=== PATIENT | female | born 1990 | race Two or more races ===

== ENCOUNTER 2024-11-24 23:05 | Emergency (ER) | payer MEDICAID, SELFPAY ==
[2024-11-24 23:09] VITALS: BMI 37.5
[2024-11-24 23:17] VITALS: BP 116/79; PULSE 90; RESP 20; TEMP 36.7; O2SAT 96
[2024-11-25] MEDS: DEXAMETHASONE SOD PHOS INJ 10 MG/ML VIAL PO (01:18)
[2024-11-25] MEDS: ALBUTEROL/IPRATROPIUM (Duoneb) RT SOL 3 ML NEBU INH (01:31)
[2024-11-25 01:32] VITALS: PULSE 82; RESP 20; O2SAT 99
--- NOTE | 2024-11-25 02:05 | XR_ITS ---
Examination: PA chest single view TECHNIQUE: Upright PA chest single view Date and time: November 25, 2024 0208 hours INDICATIONS: Fever coughing today. FINDINGS: Normal heart size. Lungs are clear. The osseous structures are intact. IMPRESSION: No active disease.
[2024-11-25 02:33] LABS: Collection Type, Urine Clean Catch
[2024-11-25 02:38] LABS: Bilirubin,Urine Negative (Negative); Blood,Urine 3+ (Negative); Clarity,Urine Clear (Clear/Hazy); Color,Urine Lt-Yellow (Lt Yel-Yel); Culture Indicated,Urine Not Indicated; Glucose, Urine Negative (Negative); Ketones,Urine Negative (Negative); Leukocyte Esterase,Urine Positive (Negative); Nitrite,Urine Negative (Negative); PH,Urine 6.0 (5.0-7.0); Protein,Urine Negative (Neg - Trace); RBC,Urine 54 /hpf (0-3); Specific Gravity,Urine 1.019 (1.001-1.035); Squamous Epithelial Cell,Urine 6 /hpf (0-5); Urobilinogen,Urine Negative mg/dL (0.0-1.0); WBC,Urine 3 /hpf (0-5)
[2024-11-25 02:40] LABS: HCG Qualitative,Urine Negative
--- NOTE | 2024-11-25 03:00 | EDNOTE_ITS ---
ED General RME/HPI General Chief complaint: Vaginal Bleeding Stated complaint: VAGINAL DISCHARGE/FLUID SOMTIMES BLOODY Time Seen by Provider: 11/25/24 00:12 Arrival date/time: 11/24/24 23:05 RME / HPI RME / HPI narrative: Thin white to pink vaginal discharge with no itch, but with foul odor. She is also leaking urine with coughing. She has been ill since with a dry cough and feeling feverish.. She is also complaining of bilateral lower lung pain. Related Data Previous Rx's ?Medication ?Instructions ?Recorded hydrocodone 5 mg-acetaminophen 300 1 tab PO Q4H PRN pa in #10 tabs 02/09/19 mg tablet (Vicodin) acetaminophen 500 mg capsule 1,000 mg (2 x 500 mg) PO Q6H PRN 02/16/19 fever or pain #30 caps acetaminophen 650 mg 650 mg PO Q8H PRN fever or p ain 08/22/21 tablet,extended release #30 tabs ibuprofen 600 mg tablet 600 mg PO Q8H PRN fever or p ain 08/22/21 #30 tabs dexamethasone 6 mg tablet 6 mg PO QDAY #5 tabs 2 (Decadron) cyclobenzaprine 10 mg tablet 10 mg PO HS #20 tabs 08/20 07/13 meloxicam 7.5 mg tablet 7.5 mg PO QDAY #14 tabs 08/20 07/13 albuterol sulfate 90 mcg/actuation 2 puff inhalation Q 4H PRN 11/25/24 aerosol inhaler shortness of breath or wheez ing #8.5 grams metronidazole 500 mg tablet 500 mg PO BID 7 days #14 t abs 11/25/24 nitrofurantoin 100 mg PO Q12H 5 days #10 ca ps 11/25/24 monohydrate/macrocrystals 100 mg capsule (Macrobid) oseltamivir 75 mg capsule (Tamiflu) 75 mg PO BID 5 day s #10 caps 11/25/24 Allergies Allergy/AdvReac Type Severity Reaction Status Date / Time amoxicillin Allergy Severe RASH Verified 02/26/24 18:25 Review of Systems Review of Systems Systems Reviewed: All systems reviewed, normal except as documented Past Medical History Past Medical History NEUROLOGIC: Negative Neurological Disorders CARDIAC: Negative Cardiac Disorders or Congestive Heart Failure RESPIRATORY: Negative Chronic Obstructive Pulmonary Disease (COPD) or Asthma GASTROINTESTINAL: Negative Gastrointestinal Disorders GENITOURINARY: Positive Genitourinary Disorders; Negative Renal Disease REPRODUCTIVE: Positive Pelvic Inflammatory Disease and Previous Pregnancies MUSCULOSKELETAL: Negative Musculoskeletal Disorders ENDOCRINE: Positive Endocrine Disorders and Pituitary Disease; Negative Diabetes Mellitus Type 1 or Diabetes Mellitus Type 2 HEMATOLOGIC: Negative Blood Disorders or Sickle Cell Disease PSYCHO/SOCIAL: Positive Depression and Anxiety OTHER HISTORY: Positive Hospitalization; Negative Autoimmune Disease, Down Syndrome, Developmental Delay, Shingles, Falls, Blood Transfusions, Anesthesia Reactions, Organ Transplant, Chemotherapy, Radiation Therapy, Hyperbaric Therapy, MRSA, VRSA, Clostridium Difficile or Cancer Family History FAMILY HISTORY: Positive Family Cardiac Disorders; Negative Family Psychiatric Problems, Family Respiratory Disorders, Family Gastrointestinal Problems, Family Cancer, Family Surgery or Family Anesthesia Reaction Surgical History SURGICAL: Positive Abdominal Surgery; Negative Cardiac Surgery, Endocrine Surgery, Ear Surgery, Nephrectomy, Joint Replacement, Neurologic Surgery, Mastectomy, Section or Organ Transplant Social History SMOKING STATUS: Never smoker SUBSTANCE USE: does not use ED Exam Narrative Physical exam: A&O, afebrile and non-toxic appearing 34-year-old female, no acute distress. Lungs are clear, active spasmodic dry coughing noted. TMs and oropharynx are without erythema. No sinus tenderness. Abdomen is soft and nontender. RRR. Moves all extremities well. Course Course Course Narrative: Initial vital signs blood pressure 116/79, pulse 90, respirations 20 and nonlabored, temperature 98.1, and O2 sat 96% on room air. COVID swab is negative, influenza A and B are both positive. Urinalysis reveals clear light yellow urine with a specific gravity of 1.19 with 3+ blood, negative nitrites, positive leukocyte esterase, 54 RBCs, 3 WBCs, 6 epithelial cells, and no bacteria. Urine hCG is negative. Patient was given dexamethasone 10 mg p.o. and a DuoNeb treatment. XR chest 2 view reveals no obvious pneumonia per preliminary read. Quality Measures none Orders Category Date Time Status Bedside COVID-19 Antigen Test NOW Care 11/25/24 01:01 Active Bedside Influenza A&B Antigen Test NOW Care 11/25/24 01:01 Completed XR chest 2V Stat Exams 11/25/24 02:05 Taken Bacterial Vaginal Panel Stat Lab 11/25/24 Ordered Chlamydia/GC/TV - PCR Stat Lab 11/25/24 Ordered HCG Qualitative,Urine Stat Lab 11/25/24 02:21 Completed Urinalysis, C/S if Indicated Stat Lab 11/25/24 02:21 Completed Albuterol/Ipratr Rt Juany [Duoneb Rt Juany] Med 11/25/24 01:01 Discontinued 3 ml INH X1 ONE Dexamethasone Inj [Decadron Inj] Med 11/25/24 01:01 Discontinued 10 mg PO X1 ONE Vital Signs Vital signs: Vital Signs Temperature 98.1 F 11/24/24 23:17 Pulse Rate 90 11/24/24 23:17 Respiratory Rate 20 11/24/24 23:17 Blood Pressure 116/79 11/24/24 23:17 Pulse Oximetry (%) 96 11/24/24 23:17 Oxygen Delivery Method Room Air 11/24/24 23:17 Discharge Plan Plan Patient Disposition: HOME (Self Care) Discharge Disposition comment: Stable and improved Prescriptions/Referrals Prescriptions/Med Rec: New oseltamivir [Tamiflu] 75 mg capsule 75 mg PO BID 5 Days Qty: 10 0RF albuterol sulfate 90 mcg/actuation HFA aerosol inhaler 2 puff inhalation Q4H PRN (Reason: shortness of breath or wheezing) Qty: 8.5 0RF metronidazole 500 mg tablet 500 mg PO BID 7 Days Qty: 14 0RF nitrofurantoin monohyd/m-cryst [Macrobid] 100 mg capsule 100 mg PO Q12H 5 Days Qty: 10 0RF Rx Instructions: must administer with a meal/food No Action hydrocodone-acetaminophen [Vicodin] 5-300 mg tablet 1 tab PO Q4H MDD 4 PRN (Reason: pain) Qty: 10 0RF acetaminophen 500 mg capsule 1,000 mg PO Q6H PRN (Reason: fever or pain) Qty: 30 0RF acetaminophen 650 mg tablet extended release 650 mg PO Q8H PRN (Reason: fever or pain) Qty: 30 0RF Rx Instructions: swallow whole; do not chew/break/dissolve/open ibuprofen 600 mg tablet 600 mg PO Q8H PRN (Reason: fever or pain) Qty: 30 0RF dexamethasone [Decadron] 6 mg tablet 6 mg PO QDAY Qty: 5 0RF meloxicam 7.5 mg tablet 7.5 mg PO QDAY Qty: 14 0RF cyclobenzaprine 10 mg tablet 10 mg PO HS Qty: 20 0RF Referrals: Anoop Machado MD [Primary Care Provider] - In 1 week Problem List Clinical Impression: Influenza, UTI (urinary tract infection), Bacterial vaginosis Patient/Caregiver Discharge Instructions Education Materials: Bacterial Vaginosis, ED Influenza (Adult), ED CYSTITIS Female Adult Additional Instructions: Take the antiviral, antibiotic, and antifungal medications as prescribed and complete the course even though you may be feeling better. Use the albuterol inhaler as needed for spasmodic coughing or shortness of breath. Follow-up with your primary care physician in 24 to 48 hours. Return to the ED for any new or worsening symptoms. Print Language: Honduran Stand Alone Forms: [employer] Award Info., Patient Portal Info Letter PA/LAUREN Supervising Physician PA/ACTING SECTION CHIEF Supervising Physician: Dr Jennifer MANZANO Narrative [facility] hospital course: Symptoms, exam and diagnostic studies are consistent with: #1 Influenza A/B, #2 vaginal discharge (likely bacterial vaginosis), #3 UTI with hematuria Patient was discharged home in stable condition. Patient/family advised to follow-up with their PCP in 24-48 hours. Encouraged to return to the ED for any new or worsening symptoms. Clinical Information Provided by patient Medical Records Reviewed None Meds/Rx Considered, not Ordered None Describe details: N/A Labs/Rad/Tests considered, not Ordered None Describe details: N/A Chronic Illness/Social Conditions which may negatively complicate care or outcome(s)-explain: None or not applicable EKG EKG not done Lab Interpretation Labs: interpreted by me Lab(s) interpretation(s): As noted above Imaging Imaging interpretation: see narrative above Provider imaging interpretation(s): No obvious lobar pneumonia Radiology reports / interpretation(s): Not available Medication Administration(s) Medication Administration History Discontinued Medications Albuterol/Ipratropium (Albuterol/Ipratropium (Duoneb) Rt Juany 3 Ml Nebu) 3 ml INH X1 ONE Stop: 11/25/24 01:02 Last Admin: 11/25/24 01:31 Dose: 3 ml Documented By: GB Dexamethasone Sodium Phosphate (Dexamethasone Sod Phos Inj 10 Mg/Ml Vial) 10 mg PO X1 ONE Stop: 11/25/24 01:02 Last Admin: 11/25/24 01:18 Dose: 10 mg Documented By: CB As noted above Diagnosis Differential diagnosis: UTI, candidiasis, bacterial vaginosis, pneumonia, COVID, influenza A/B Differential dx and/or dx ruled out: Pneumonia, COVID Most likely dx, and/or detailed dx discussion: UTI, bacterial vaginosis, influenza A and B+ Dispositon Disposition: Discharge Home Disposition comments: Patient is stable for discharge
== END 2024-11-25 03:38 | disposition home or self-care (01) ==
PROVIDERS: Physician Assistant; Emergency Provider Emergency Medicine; PCP Student in an Organized Health Care Education/Training Program
DX: N39.0 Urinary tract infection, site not specified (principal); N76.0 Acute vaginitis; J10.1 Influenza due to other identified influenza virus with other respiratory manifestations; B96.89 Other specified bacterial agents as the cause of diseases classified elsewhere
CPT/HCPCS: 71046; 81001; 81025; 81514; 87400; 87491; 87591; 87661; 87811; 94640; 99283; A9270; J1100

== ENCOUNTER 2025-04-09 18:20 | Emergency (ER) | payer MEDICAID, SELFPAY ==
[2025-04-09 19:35] VITALS: BP 122/81; PULSE 70; RESP 18; TEMP 36.8; O2SAT 98; BMI 37.0
--- NOTE | 2025-04-09 19:57 | XR_ITS ---
Examination: CT brain head without contrast. 2-D sagittal coronal reconstructions Date and time of exam: April 09, 2025, 2103 hours INDICATION: Headaches blurred vision beginning 2 days ago CTDI: vol (mGy): 49.8 DLP: (mGycm): 914 Technique: Multiple CT axial sections of the brain have been obtained, 5 mm slice thickness. Contrast has not been administered. 2-D sagittal, coronal reconstructions have been obtained Low dose protocols were performed. One or more of the following dose reduction techniques were used; automated exposure control, adjustment of the mA and/or KV according to patient size, use of iterative reconstruction technique. Findings: No significant ventricular enlargement. Intra-axial or extra-axial hemorrhage density is not seen. No mass effect or midline shift Basal cisterns are not remarkable. Fourth ventricle is midline. Cranial vault intact. Impression: Negative for acute hemorrhage, mass effect or midline shift As clinically warranted, consider brain MRI follow-up
--- NOTE | 2025-04-09 19:58 | EDRME_ITS ---
Rapid Medical Screening Exam [facility] Arrival date/time: 04/09/25 18:20 35F with history of migraines presents to ED with 2 days of DIAZ, R eye pain/blurry vision, and difficulty focusing. Chief Complaint: Eye Problems Vital signs: Vital Signs Temperature 98.2 F 04/09/25 19:35 Pulse Rate 70 04/09/25 19:35 Respiratory Rate 18 04/09/25 19:35 Blood Pressure 122/81 04/09/25 19:35 Pulse Oximetry (%) 98 04/09/25 19:35 Oxygen Delivery Method Room Air 04/09/25 19:35 Exam: Normal pupil response and EOM. No redness. CN II-XII grossly intact. Neg pronator drift test. Speech normal. Clinical Impression: Migraine vs sinusitis vs CVA/TIA vs brain bleed vs retinal detachment vs glaucoma
[2025-04-09] MEDS: METOCLOPRAMIDE 5 MG TABLET 10 MG PO (20:37)
[2025-04-09] MEDS: SUMAtriptan INJ 6 MG/0.5 ML VIAL SC (20:38)
[2025-04-09 21:31] LABS: Basophils # (Auto) 0.0 Thou/mm3 (0.0-0.2); Basophils % (Auto) 0 % (0-2.5); Eosinophils # (Auto) 0.2 Thou/mm3 (0.0-0.5); Eosinophils % (Auto) 2 % (0-10); Hematocrit 37.6 % (36.0-46.0); Hemoglobin 13.3 g/dL (12.0-16.0); Immature Granulocytes Auto 0.02 Thou/mm3 (0.00-0.00); Lymphocytes # (Auto) 3.1 Thou/mm3 (1.0-4.8); Lymphocytes % (Auto) 37 % (10-50); Mean Corpuscular HGB Conc 35.4 g/dl (31.0-37.0); Mean Corpuscular Hemoglobin 29.4 pg (25.0-35.0); Mean Corpuscular Volume 83 fL (80-100); Monocytes # (Auto) 0.7 Thou/mm3 (0.0-0.8); Monocytes % (Auto) 8 % (0-12); Neutrophils # (Auto) 4.4 Thou/mm3 (1.8-7.7); Neutrophils % (Auto) 53 % (37-80); Nucleated Red Blood Cell # 0.00 Thou/mm3 (0.00-0.00); Nucleated Red Blood Cell % 0 /100 WBC (0); Platelet Count 233 Thou/mm3 (140-440); RDW Standard Deviation 38.4 fL (36.4-46.3); Red Blood Count 4.53 Miln/mm3 (4.00-5.20); White Blood Count 8.3 Thou/mm3 (3.6-11.0)
[2025-04-09 21:46] LABS: Alanine Aminotransferase 19 U/L (10-49); Albumin, Serum 4.2 gm/dL (3.5-5.0); Albumin/Globulin Ratio 1.2 (1.2-2.2); Alkaline Phosphatase 134 U/L (46-116); Anion Gap 8 (7-16); Aspartate Amino Transferase 23 U/L (0-34); BUN/Creatinine Ratio 11 Ratio (12-20); Bilirubin,Total 0.4 mg/dL (0.3-1.2); Blood Urea Nitrogen 9 mg/dL (9-23); Calcium 9.4 mg/dL (8.3-10.6); Calcium (Corrected) 9.4 mg/dL (8.5-10.1); Carbon Dioxide 26.4 mMol/L (20.0-31.0); Chloride 106 mMol/L (98-107); Creatinine (Component) 0.8 mg/dL (0.6-1.3); Estimated Creatinine Clearance 96.6 mL/min (>60); Globulin 3.4 gm/dL (2.3-3.5); Glucose 98 mg/dL (74-106); Osmolality,Calculated 278 (275-295); Potassium 4.5 mMol/L (3.4-5.1); Sodium 140 mMol/L (136-145); Total Protein 7.6 gm/dL (5.7-8.2); eGFR > 60 See Note
--- NOTE | 2025-04-09 22:04 | EDNOTE_ITS ---
ED Eye Problem RME/HPI General Chief complaint: Eye Problems Stated complaint: R EYE PAIN FEELS LIKE A CURTAIN IN VISION X 2 DAYS Time Seen by Provider: 04/09/25 20:00 Arrival date/time: 04/09/25 18:20 RME / HPI RME / HPI Narrative: 04/09/25 18:20 35F with history of migraines presents to ED with 2 days of DIAZ, R eye pain/blurry vision, and difficulty focusing. DR. HERNÁNDEZ MAIN ED EVALUATION: 35 y/o female with Hx of Anxiety, Depression, and Pituitary Disease presents to ED c/o visual disturbance and pressure to the right eye x 3 days and headache x 1 day. Patient experienced similar symptoms 5 years ago when having a headache, but visual disturbance occurred to both eyes. Denies any recent head strike. No other complaints. Exam: Normal pupil response and EOM. No redness. CN II-XII grossly intact. Neg pronator drift test. Speech normal. Impression: Migraine vs sinusitis vs CVA/TIA vs brain bleed vs retinal detachment vs glaucoma Related Data Previous Rx's ?Medication ?Instructions ?Recorded hydrocodone 5 mg-acetaminophen 300 1 tab PO Q4H PRN pa in #10 tabs 02/09/19 mg tablet (Vicodin) acetaminophen 500 mg capsule 1,000 mg (2 x 500 mg) PO Q6H PRN 02/16/19 fever or pain #30 caps acetaminophen 650 mg 650 mg PO Q8H PRN fever or p ain 08/22/21 tablet,extended release #30 tabs ibuprofen 600 mg tablet 600 mg PO Q8H PRN fever or p ain 08/22/21 #30 tabs dexamethasone 6 mg tablet 6 mg PO QDAY #5 tabs 2 (Decadron) cyclobenzaprine 10 mg tablet 10 mg PO HS #20 tabs 08/20 07/13 meloxicam 7.5 mg tablet 7.5 mg PO QDAY #14 tabs 08/20 07/13 albuterol sulfate 90 mcg/actuation 2 puff inhalation Q 4H PRN 11/25/24 aerosol inhaler shortness of breath or wheez ing #8.5 grams Allergies Allergy/AdvReac Type Severity Reaction Status Date / Time No Known Allergies Allergy Verified 04/09/25 18:24 Review of Systems Review of Systems Systems Reviewed: All systems reviewed, normal except as documented Past Medical History Past Medical History GENITOURINARY: Positive Genitourinary Disorders REPRODUCTIVE: Positive Pelvic Inflammatory Disease and Previous Pregnancies ENDOCRINE: Positive Endocrine Disorders and Pituitary Disease PSYCHO/SOCIAL: Positive Depression and Anxiety OTHER HISTORY: Positive Hospitalization Family History FAMILY HISTORY: Positive Family Cardiac Disorders Surgical History SURGICAL: Positive Abdominal Surgery ED Exam Narrative Physical exam: Generally patient is alert and in no obvious distress, eyes show pupils equal round reactive to light with extraocular movements intact, no erythematous conjunctiva, funduscopic exam bilaterally was normal, fluorescein dye exam to the right eye showed no foreign body and no corneal abrasion. Bedside ultrasound of the right eye performed by myself here in the emergency room showed no evidence for retinal detachment., Neurologic exam cranial nerves II through XII grossly intact without focal motor deficit, heart regular rate and rhythm, lungs clear to auscultation equal bilaterally, abdomen soft bowel sounds present nondistended nontender Course Quality Measures none Orders Category Date Time Status CT head/brain wo con Stat Exams 04/09/25 19:57 Completed CBC Stat Lab 04/09/25 21:20 Completed CMP [Comprehensive Metabolic Panel] Stat Lab 04/09/25 21:20 Completed Metoclopramide [Reglan] Med 04/09/25 19:57 Discontinued 10 mg PO X1 ONE SUMAtriptan INJ [Imitrex Inj] Med 04/09/25 19:57 Discontinued 6 mg SC X1 ONE Vital Signs Vital signs: Vital Signs Temperature 98.2 F 04/09/25 19:35 Pulse Rate 70 04/09/25 19:35 Respiratory Rate 18 04/09/25 19:35 Blood Pressure 122/81 04/09/25 19:35 Pulse Oximetry (%) 98 04/09/25 19:35 Oxygen Delivery Method Room Air 04/09/25 19:35 Eye MDM Narrative MDM Narrative:: Scribe Attestation: Ivette Herrera am scribing for and in the presence of Dr. Hernández. Provider Notation: Although this document has been carefully reviewed, there may still be some phonetic and other typographical errors. These errors are purely grammatical due to imperfections in the software program and should not be construed in any way to compromise the substance of the patient's medical care during this visit. As stated in physical exam bedside ultrasound of the right eye performed by myself here in the emergency room showed no evidence of retinal detachment. There is no clinical evidence of glaucoma or foreign body or corneal abrasion. Head CT ordered prior to my evaluation was negative. Blood work is unremarkable. Blood sugar was 98. Patient is not hypertensive. Patient does have a headache. The feeling of foreign body sensation in the right eye may be due to the headache. There is no clinical evidence of foreign body in the right eye here in the emergency room. Patient is to follow-up with an crisis therapist within the next several days. Pupils are midrange and reactive without erythematous conjunctiva. Anterior chambers were clear so I do not suspect glaucoma. Differential diagnosis: Detached retina, foreign body, corneal abrasion, migraine headache Patient data External records reviewed:: [facility] previous records (Reviewed prior ED records from 11/25/24. Patient was seen for Bacterial vaginosis.) Clinical information provided by:: patient Social determinants that could affect healthcare access:: mental health (Anxiety/Depression) Patient has the following chronic illnesses:: Pelvic Inflammatory, Pituitary Disease, Depression and Anxiety How is presenting disease/condition affected by chronic disease/condition?: exacerbated by Evaluation data The following diagnostics were reviewed and interpreted by me:: lab results and radiology exam(s) Lab and/or radiology exams considered but not ordered:: None Interpretation Summary: RADIOLOGY Head/Brain CT: Findings: No significant ventricular enlargement. Intra-axial or extra-axial hemorrhage density is not seen. No mass effect or midline shift Basal cisterns are not remarkable. Fourth ventricle is midline. Cranial vault intact. Impression: Negative for acute hemorrhage, mass effect or midline shift As clinically warranted, consider brain MRI follow-up Medications / Prescriptions Medications or Prescriptions considered but not ordered:: None Medication administrations:: Medication Administration History Discontinued Medications Metoclopramide HCl (Metoclopramide 5 Mg Tablet) 10 mg PO X1 ONE Stop: 04/09/25 19:58 Last Admin: 04/09/25 20:37 Dose: 10 mg Documented By: YENI Sumatriptan Succinate (Sumatriptan Inj 6 Mg/0.5 Ml Vial) 6 mg SC X1 ONE Stop: 04/09/25 19:58 Last Admin: 04/09/25 20:38 Dose: 6 mg Documented By: YENI See above if any. Consultations Consultation(s) initiated? (list below): No Diagnosis Eye Problem Differential Diagnosis: corneal abrasion, acute iritis, glaucoma, corneal ulcer, ruptured globe and other (CVA, TIA) Most likely diagnosis given after review of the tests above:: None Admission Indicated Admission indicated?: not indicated Explain why admission is indicated or not indicated:: Patient does not meet admission criteria. Admission Request Was there a request for admission?: No Disposition Plan Disposition Plan: Discharge Discharge Attestation Discharge Attestation: The patient and all family members were given an opportunity to ask questions and understood the discharge instructions. Discharge instructions specifically effects, indications for sooner follow up or return to the emergency department, and the expected course of current diagnosis. Patient condition: Stable Discharge Plan Plan Patient Disposition: HOME (Self Care) Prescriptions/Referrals Prescriptions/Med Rec: No Action hydrocodone-acetaminophen [Vicodin] 5-300 mg tablet 1 tab PO Q4H MDD 4 PRN (Reason: pain) Qty: 10 0RF acetaminophen 500 mg capsule 1,000 mg PO Q6H PRN (Reason: fever or pain) Qty: 30 0RF acetaminophen 650 mg tablet extended release 650 mg PO Q8H PRN (Reason: fever or pain) Qty: 30 0RF Rx Instructions: swallow whole; do not chew/break/dissolve/open ibuprofen 600 mg tablet 600 mg PO Q8H PRN (Reason: fever or pain) Qty: 30 0RF dexamethasone [Decadron] 6 mg tablet 6 mg PO QDAY Qty: 5 0RF meloxicam 7.5 mg tablet 7.5 mg PO QDAY Qty: 14 0RF cyclobenzaprine 10 mg tablet 10 mg PO HS Qty: 20 0RF albuterol sulfate 90 mcg/actuation HFA aerosol inhaler 2 puff inhalation Q4H PRN (Reason: shortness of breath or wheezing) Qty: 8.5 0RF Referrals: No Primary/Family,Physician [Primary Care Provider] - In 1 week Problem List Clinical Impression: Cephalgia, Eye pain Patient/Caregiver Discharge Instructions Additional Instructions: Follow-up with an crisis therapist within the next several days. Return to ER as needed or if condition worsens. Print Language: Paraguayan Stand Alone Forms: [employer] Award Info., Patient Portal Info Letter
== END 2025-04-09 22:38 | disposition home or self-care (01) ==
PROVIDERS: Physician Assistant; Emergency Provider Emergency Medicine
DX: H57.11 Ocular pain, right eye (principal); R51.9 Headache, unspecified; H53.8 Other visual disturbances
CPT/HCPCS: 36415; 70450; 80053; 85025; 99283; J3030; A9270